=== PATIENT | female | born 1960 | race Two or more races ===

== ENCOUNTER 2020-10-19 13:27 | Inpatient (IN) | payer OTHER ==
[~2020-10-19] VITALS: Ht 157.5 cm; Wt 91.7 kg
[~2020-10-19 13:27] MED LIST: ACID1TAB7 PO; ASPI81TA45 PO; CA C1TAB28 PO; EPHEDRINE 50 MG/ML, 1ML IVPush PRN; GABA300C10 PO; HUM100VI SQ; IBUP200T64 PO; LABETALOL 5MG/ML, 20ML IV PRN; LEVO750T26 PO; LINE600T12 PO; LIRA0.6P SQ; LOSA100T14 PO; METF500T17 PO; ONDANSETRON 2MG/ML, 2ML IVPush PRN; OXYcodone 5 MG/5 ML ORAL.SOL UDC PO PRN; PROMETHAZINE 25 MG/ML, 1ML IVPush PRN; hydrALAzine 20 MG/ML, 1ML IV PRN
[2020-10-19] MEDS ORDERED: CHLORHEXIDINE 15 ML UDC PO ONE (14:00)
[2020-10-19] MEDS ORDERED: LACTATED RINGERS 1,000 ML IV SCH (14:00)
[2020-10-19 14:23] VITALS: BP 138/75
[2020-10-19] MEDS ORDERED: ACETAMINOPHEN 500 MG TABLET PO ONE (14:30)
[2020-10-19] MEDS ORDERED: GABAPENTIN 300 MG CAPSULE PO ONE (14:30)
[2020-10-19] MEDS ORDERED: KETOROLAC 60 MG/2 ML ONE (14:31)
[2020-10-19] MEDS ORDERED: TRANEXAMIC ACID 100 MG/ML, 10ML ONE ×2 (14:31→14:32)
[2020-10-19] MEDS ORDERED: ROPIvacaine/PF 0.5%, 20 ML ONE (14:32)
[2020-10-19] MEDS ORDERED: TOBRAMYCIN SULFATE 1.2 GM IMP ONE ×2 (14:32→15:17)
[2020-10-19] MEDS ORDERED: ROPIvacaine/PF 0.5%, 30 ML ONE (14:33)
[2020-10-19] MEDS ORDERED: VANCOMYCIN 1,000 MG ONE (14:33)
[2020-10-19] MEDS ORDERED: SODIUM CHLORIDE 0.9% 50 ML ONE (14:33)
[2020-10-19] MEDS ORDERED: EPINEPHRINE 1 MG/ML, 1ML ONE (14:33)
[2020-10-19] MEDS ORDERED: METOPROLOL PO (14:36)
[2020-10-19] MEDS ORDERED: VITAMIN D PO (14:36)
[2020-10-19] MEDS ORDERED: ATORVAS (14:37)
[2020-10-19] MEDS ORDERED: ATORVASTATIN PO (14:38)
[2020-10-19 14:44] LABS: BASOPHILS % (AUTO) 1 % (0-1); EOSINOPHILS % (AUTO) 3 % (1-7); LYMPHOCYTES % (AUTO) 25 % (22-44); MEAN CORPUSCULAR HGB CONC 31.2 g/dL (32.4-35.8); MEAN PLATELET VOLUME 7.6 fL (7.4-10.4); MONOCYTES % (AUTO) 6 % (2-9); NEUTROPHILS % (AUTO) 65 % (42-75); PLATELET COUNT 443 x10^3/uL (130-400); RED BLOOD COUNT 4.97 x10^6/uL (3.82-5.3); RED CELL DISTRIBUTION WIDTH 17.6 % (9.6-15.2)
[2020-10-19 14:45] LABS: MD MORPH REVIEW ONLY
[2020-10-19 14:54] LABS: ANION GAP 6 mmol/L (5-15); CALCIUM 9.6 mg/dL (8.5-10.1); CHLORIDE 107 mmol/L (98-107); CREATININE 0.62 mg/dL (0.55-1.02)
[2020-10-19 14:58] LABS: INTERNATIONAL NORMALIZED RATIO 1.02 (0.93-1.1); PROTHROMBIN TIME 10.9 Seconds (9.6-11.5)
[2020-10-19] MEDS ORDERED: BISACODYL 10 MG SUPP PR PRN (15:00)
[2020-10-19] MEDS ORDERED: ONDANSETRON 2MG/ML, 2ML IV PRN (15:00)
[2020-10-19] MEDS ORDERED: ZOLPIDEM 5MG TABLET PO PRN (15:00)
[2020-10-19] MEDS ORDERED: DAPTOMYCIN 500 MG ONE (15:00)
[2020-10-19] MEDS ORDERED: CEFAZOLIN PMX 1GM/50ML 50 ML IV SCH (15:00)
[2020-10-19] MEDS ORDERED: HYDROcodone/APAP 5/325 TABLET PO PRN (15:00)
[2020-10-19] MEDS ORDERED: MAGNESIUM HYDROXIDE 8%, 30ML UDC PO PRN (15:00)
[2020-10-19] MEDS ORDERED: HYDROmorphone 1 MG/ML, 1ML INJ IV PRN (15:00)
[2020-10-19] MEDS ORDERED: DIPHENHYDRAMINE 50 MG CAPSULE PO PRN (15:00)
[2020-10-19] MEDS ORDERED: CEFAZOLIN PMX 2GM/50ML 50 ML IVPB SCH (15:00)
[2020-10-19] MEDS ORDERED: ONDANSETRON 4 MG TABLET PO PRN (15:00)
[2020-10-19] MEDS ORDERED: DEXTROSE 50%, 50ML SYRINGE ONE (15:07)
[2020-10-19] MEDS ORDERED: MIDAZOLAM 1 MG/ML, 2ML ONE ×2 (15:13→15:35)
[2020-10-19] MEDS ORDERED: FENTANYL PF 250 MCG/5ML ONE ×2 (15:13→15:35)
[2020-10-19 15:26] LABS: <PLATELET ESTIMATE> INCREASED; ANISOCYTOSIS 1+; MICROCYTOSIS 1+; POLYCHROMASIA 1+
[2020-10-19 15:27] LABS: <PLT MORPHOLOGY> NORMAL PLT MORPH
[2020-10-19] MEDS ORDERED: DEXTROSE 50%, 50ML SYRINGE IVPush ONE (15:30)
[2020-10-19] MEDS ORDERED: RIVA20TA PO (15:37)
[2020-10-19] MEDS ORDERED: EPHEDRINE 50 MG/ML, 1ML ONE (15:45)
[2020-10-19] MEDS ORDERED: GLYCOPYRROLATE 0.2MG/1ML, 5ML ONE (17:07)
[2020-10-19] MEDS ORDERED: PROPOFOL 10 MG/ML, 20ML ONE (17:07)
[2020-10-19] MEDS ORDERED: ROCURONIUM 10MG/ML,5ML ONE (17:07)
[2020-10-19] MEDS ORDERED: NEOSTIGMINE 1 MG/ML, 10ML ONE (17:07)
[2020-10-19] MEDS ORDERED: ONDANSETRON 2MG/ML, 2ML ONE ×2 (17:08)
[2020-10-19] MEDS: FENTANYL PF 100 MCG/2ML IV PRN ×4 (17:53→18:25)
[2020-10-19] MEDS ORDERED: LABETALOL 5MG/ML, 20ML IV PRN (18:00)
[2020-10-19] MEDS ORDERED: EPHEDRINE 50 MG/ML, 1ML IVPush PRN (18:00)
[2020-10-19] MEDS ORDERED: OXYcodone 5 MG/5 ML ORAL.SOL UDC PO PRN (18:00)
[2020-10-19] MEDS ORDERED: PROMETHAZINE 12.5 MG SUPP PR PRN (18:00)
[2020-10-19] MEDS ORDERED: PROMETHAZINE 25 MG/ML, 1ML IVPush PRN (18:00)
[2020-10-19] MEDS ORDERED: DIAZEPAM 5 MG/ML, 2ML IVPush PRN (18:00)
[2020-10-19] MEDS ORDERED: DIPHENHYDRAMINE 50 MG/ML, 1ML IVPush PRN ×2 (18:00)
[2020-10-19] MEDS ORDERED: hydrALAzine 20 MG/ML, 1ML IV PRN (18:00)
[2020-10-19] MEDS ORDERED: ALBUTEROL SULFATE 2.5 MG/3 ML NPPB PRN (18:00)
[2020-10-19] MEDS ORDERED: ACETAMINOPHEN 325 MG TABLET PO PRN (18:00)
[2020-10-19] MEDS ORDERED: FENTANYL PF 100 MCG/2ML IV PRN (18:00)
[2020-10-19] MEDS ORDERED: HYDROmorphone 1 MG/ML, 1ML INJ IVPush PRN (18:00)
[2020-10-19] MEDS ORDERED: MIDAZOLAM 1 MG/ML, 2ML IV PRN (18:00)
[2020-10-19] MEDS ORDERED: MEPERIDINE/PF 25MG/0.5ML IVPush PRN (18:00)
[2020-10-19] MEDS ORDERED: ONDANSETRON 2MG/ML, 2ML IVPush PRN (18:00)
[2020-10-19] MEDS ORDERED: OXYcodone 5 MG/5 ML ORAL.SOL UDC ONE (18:10)
[2020-10-19] MEDS ORDERED: FENTANYL PF 100 MCG/2ML ONE (18:10)
[2020-10-19] MEDS ORDERED: HYDROmorphone 1 MG/ML, 1ML INJ ONE (18:28)
[2020-10-19] MEDS: HYDROmorphone 1 MG/ML, 1ML INJ IVPush PRN ×2 (18:39→19:04)
[2020-10-19 19:45] LABS: HCT (SEDRATE) 35.1 % (34.6-47.8)
[2020-10-19 20:00] VITALS: BP 108/66
[2020-10-19] MEDS: ACETAMINOPHEN 650 MG/20.3 ML UDC PO PRN (22:07)
[2020-10-19] MEDS: MEROPENEM 1 GM in SODIUM CHLORIDE 0.9% 100 ML IV SCH (22:08)
[2020-10-19] MEDS: DOCUSATE 100 MG CAPSULE PO SCH (22:08)
[2020-10-19] MEDS: ASPIRIN 81 MG TABLET EC PO SCH (22:08)
[2020-10-19] MEDS: OXYcodone IR 5MG TABLET PO PRN (22:08)
[2020-10-19] MEDS: LOSARTAN 100 MG TAB PO SCH (22:09)
[2020-10-19] MEDS: NS + 20MEQ KCL 1,000 ML IV SCH (23:06)
[2020-10-19] MEDS: INSULIN LISPRO 100 UNITS/ML, PEN SQ-INSULIN SCH (23:12)
[2020-10-20 00:05] VITALS: BP 89/53
[2020-10-20 04:16] VITALS: BP 83/52
[2020-10-20 04:26] VITALS: BP 86/50
[2020-10-20] MEDS: RIVAROXABAN 10 MG TABLET PO SCH (05:48)
[2020-10-20] MEDS: ASPIRIN 81 MG TABLET EC PO SCH ×2 (05:48→17:18)
[2020-10-20] MEDS: MEROPENEM 1 GM in SODIUM CHLORIDE 0.9% 100 ML IV SCH ×3 (05:49→22:32)
[2020-10-20 06:01] LABS: CHLORIDE 107 mmol/L (98-107)
[2020-10-20 06:14] LABS: ANION GAP 7 mmol/L (5-15); CREATININE 0.74 mg/dL (0.55-1.02)
[2020-10-20 06:26] VITALS: BP 93/56
[2020-10-20] MEDS: DOCUSATE 100 MG CAPSULE PO SCH ×2 (07:59→20:49)
[2020-10-20] MEDS: ACETAMINOPHEN 650 MG/20.3 ML UDC PO PRN (07:59)
[2020-10-20] MEDS: INSULIN LISPRO 100 UNITS/ML, PEN SQ-INSULIN SCH ×4 (08:00→20:51)
[2020-10-20] MEDS: NS + 20MEQ KCL 1,000 ML IV SCH ×2 (11:00→23:30)
[2020-10-20] MEDS: OXYcodone IR 5MG TABLET PO PRN ×3 (12:01→22:31)
[2020-10-20 13:49] VITALS: BP 104/64
[2020-10-20] MEDS: DAPTOMYCIN 500 MG in SODIUM CHLORIDE 0.9% 100 ML IVPB SCH (15:02)
[2020-10-20 19:27] VITALS: BP 98/59
[2020-10-20] MEDS: LOSARTAN 100 MG TAB PO SCH (20:49)
[2020-10-20] MEDS: SENNA/DOCUSATE TABLET PO PRN (22:32)
[2020-10-21] VITALS (8 sets, daily range): BP systolic 93–120; BP diastolic 59–82
[2020-10-21] MEDS: ASPIRIN 81 MG TABLET EC PO SCH ×3 (06:00→19:10)
[2020-10-21] MEDS: RIVAROXABAN 10 MG TABLET PO SCH ×2 (06:00→09:48)
[2020-10-21 06:03] LABS: BASOPHILS % (AUTO) 0 % (0-1); EOSINOPHILS % (AUTO) 6 % (1-7); LYMPHOCYTES % (AUTO) 10 % (22-44); MEAN CORPUSCULAR HEMOGLOBIN 22.8 pg (27.0-34.8); MEAN CORPUSCULAR HGB CONC 31.9 g/dL (32.4-35.8); MEAN PLATELET VOLUME 7.8 fL (7.4-10.4); MONOCYTES % (AUTO) 6 % (2-9); NEUTROPHILS % (AUTO) 77 % (42-75); PLATELET COUNT 329 x10^3/uL (130-400); RED BLOOD COUNT 3.22 x10^6/uL (3.82-5.3); RED CELL DISTRIBUTION WIDTH 17.4 % (9.6-15.2)
[2020-10-21 06:08] LABS: ALANINE AMINOTRANSFERASE 14 U/L (12-78); ALBUMIN 2.2 g/dL (3.4-5.0); ANION GAP 5 mmol/L (5-15); CALCIUM 8.5 mg/dL (8.5-10.1); CHLORIDE 105 mmol/L (98-107)
[2020-10-21 06:10] LABS: ALKALINE PHOSPHATASE 99 U/L (45-117); BILIRUBIN,TOTAL 0.4 mg/dL (0.2-1.0); CREATINE KINASE, TOTAL 97 U/L (26-192); CREATININE 0.49 mg/dL (0.55-1.02); MD NO; TOTAL PROTEIN 5.8 g/dL (6.4-8.2)
[2020-10-21] MEDS: OXYcodone IR 5MG TABLET PO PRN ×3 (07:02→20:07)
[2020-10-21] MEDS: MEROPENEM 1 GM in SODIUM CHLORIDE 0.9% 100 ML IV SCH ×3 (07:02→22:13)
[2020-10-21] MEDS: INSULIN LISPRO 100 UNITS/ML, PEN SQ-INSULIN SCH ×4 (07:40→20:10)
[2020-10-21] MEDS: DOCUSATE 100 MG CAPSULE PO SCH ×2 (08:20→20:08)
[2020-10-21] MEDS: NS + 20MEQ KCL 1,000 ML IV SCH (10:52)
[2020-10-21] MEDS: DAPTOMYCIN 500 MG in SODIUM CHLORIDE 0.9% 100 ML IVPB SCH (14:55)
[2020-10-21] MEDS: ACETAMINOPHEN 650 MG/20.3 ML UDC PO PRN (20:06)
[2020-10-21] MEDS: SENNA/DOCUSATE TABLET PO PRN (20:07)
[2020-10-21] MEDS: LOSARTAN 100 MG TAB PO SCH (20:08)
[2020-10-22] MEDS: NS + 20MEQ KCL 1,000 ML IV SCH ×2 (00:30→13:01)
[2020-10-22 00:54] VITALS: BP 103/63
[2020-10-22] MEDS: MEROPENEM 1 GM in SODIUM CHLORIDE 0.9% 100 ML IV SCH ×3 (06:23→22:07)
[2020-10-22] MEDS: ACETAMINOPHEN 650 MG/20.3 ML UDC PO PRN ×3 (06:23→19:17)
[2020-10-22] MEDS: OXYcodone IR 5MG TABLET PO PRN ×3 (06:23→19:18)
[2020-10-22] MEDS: RIVAROXABAN 10 MG TABLET PO SCH (06:35)
[2020-10-22 06:56] VITALS: BP 128/62
[2020-10-22] MEDS: DOCUSATE 100 MG CAPSULE PO SCH ×2 (08:10→20:46)
[2020-10-22] MEDS: INSULIN LISPRO 100 UNITS/ML, PEN SQ-INSULIN SCH ×4 (08:11→20:47)
[2020-10-22 13:04] VITALS: BP 108/67
[2020-10-22] MEDS: DAPTOMYCIN 500 MG in SODIUM CHLORIDE 0.9% 100 ML IVPB SCH (15:10)
[2020-10-22] MEDS: ASPIRIN 81 MG TABLET EC PO SCH (17:52)
[2020-10-22 18:40] VITALS: BP 103/65
[2020-10-22] MEDS: LOSARTAN 100 MG TAB PO SCH (20:46)
[2020-10-23 00:17] VITALS: BP 138/63
[2020-10-23] MEDS: NS + 20MEQ KCL 1,000 ML IV SCH ×2 (01:30→14:11)
[2020-10-23] MEDS: ACETAMINOPHEN 650 MG/20.3 ML UDC PO PRN ×2 (04:23→13:05)
[2020-10-23] MEDS: OXYcodone IR 5MG TABLET PO PRN ×2 (04:24→13:05)
[2020-10-23 05:24] LABS: BASOPHILS % (AUTO) 0 % (0-1); EOSINOPHILS % (AUTO) 10 % (1-7); LYMPHOCYTES % (AUTO) 15 % (22-44); MEAN CORPUSCULAR HEMOGLOBIN 23.3 pg (27.0-34.8); MEAN CORPUSCULAR HGB CONC 32.2 g/dL (32.4-35.8); MEAN PLATELET VOLUME 7.5 fL (7.4-10.4); MONOCYTES % (AUTO) 7 % (2-9); NEUTROPHILS % (AUTO) 68 % (42-75); PLATELET COUNT 351 x10^3/uL (130-400); RED BLOOD COUNT 3.17 x10^6/uL (3.82-5.3); RED CELL DISTRIBUTION WIDTH 17.7 % (9.6-15.2)
[2020-10-23 05:32] LABS: MD NO
[2020-10-23 05:33] LABS: HCT (SEDRATE) 22.9 % (34.6-47.8)
[2020-10-23 05:36] LABS: ANION GAP 3 mmol/L (5-15); CALCIUM 8.6 mg/dL (8.5-10.1); CHLORIDE 106 mmol/L (98-107)
[2020-10-23 05:46] LABS: ALANINE AMINOTRANSFERASE 16 U/L (12-78); ALKALINE PHOSPHATASE 92 U/L (45-117); BILIRUBIN,TOTAL 0.3 mg/dL (0.2-1.0); CREATINE KINASE, TOTAL 47 U/L (26-192); CREATININE 0.43 mg/dL (0.55-1.02); TOTAL PROTEIN 5.8 g/dL (6.4-8.2)
[2020-10-23] MEDS: RIVAROXABAN 10 MG TABLET PO SCH (06:05)
[2020-10-23] MEDS: ASPIRIN 81 MG TABLET EC PO SCH (06:05)
[2020-10-23] MEDS: MEROPENEM 1 GM in SODIUM CHLORIDE 0.9% 100 ML IV SCH ×2 (06:05→15:26)
[2020-10-23 06:55] VITALS: BP 92/57
[2020-10-23] MEDS: INSULIN LISPRO 100 UNITS/ML, PEN SQ-INSULIN SCH ×3 (07:35→16:22)
[2020-10-23] MEDS: DOCUSATE 100 MG CAPSULE PO SCH (08:38)
[2020-10-23 12:52] VITALS: BP 95/58
[2020-10-23] MEDS: DAPTOMYCIN 500 MG in SODIUM CHLORIDE 0.9% 100 ML IVPB SCH (16:03)
[2020-10-23 16:20] VITALS: BP 100/73
== END 2020-10-23 17:28 | disposition home or self-care (01) | DRG 468 ==
LOC: OR 13:27 → ORIP 14:34 → 4NE 19:45
PROVIDERS: ADMIT Orthopaedic Surgery; ATTEND Orthopaedic Surgery
PROC: 0SRD0J9 Replacement of Left Knee Joint with Synthetic Substitute, Cemented, Open Approach (ICD-10-PCS; 2020-10-19)
PROC: 0SPD0JZ Removal of Synthetic Substitute from Left Knee Joint, Open Approach (ICD-10-PCS; principal; 2020-10-19 15:00)
PROC: 30233N1 Transfusion of Nonautologous Red Blood Cells into Peripheral Vein, Percutaneous Approach (ICD-10-PCS; 2020-10-21)
PROC: 02HV33Z Insertion of Infusion Device into Superior Vena Cava, Percutaneous Approach (ICD-10-PCS; 2020-10-23)
PROC: B5181ZA Fluoroscopy of Superior Vena Cava using Low Osmolar Contrast, Guidance (ICD-10-PCS; 2020-10-23)
PROC: B548ZZA Ultrasonography of Superior Vena Cava, Guidance (ICD-10-PCS; 2020-10-23)
DX: T84.625A Infection and inflammatory reaction due to internal fixation device of left fibula, initial encounter (principal); Z96.652 Presence of left artificial knee joint; D64.9 Anemia, unspecified; Y84.8 Other medical procedures as the cause of abnormal reaction of the patient, or of later complication, without mention of misadventure at the time of the procedure; Y92.89 Other specified places as the place of occurrence of the external cause; E11.9 Type 2 diabetes mellitus without complications; I10 Essential (primary) hypertension; K59.00 Constipation, unspecified; S83.006A Unspecified dislocation of unspecified patella, initial encounter; Y83.1 Surgical operation with implant of artificial internal device as the cause of abnormal reaction of the patient, or of later complication, without mention of misadventure at the time of the procedure; Z91.81 History of falling; Z88.0 Allergy status to penicillin; Z88.1 Allergy status to other antibiotic agents
CPT/HCPCS: 36415; 73560; J3260; 36573; 80048; 80053; 82550; 82962; 83036; 85014; 85018; 85025; 85610; 85651; 85730; 86140; 86850; 86900; 86923; 87015; 87040; 87070; 87075; 87081; 87102; 87116; 87176; 87205; 87206; 87635; 93005; C1713; G0378; J0171; J0878; J1170; J1885; J2185; J2250; J2405; J2704; J2710; J2795; J3010; J3370; J3480; C1751; C1776; J1815; J7120; P9016